=== PATIENT | female | born 1990 | race Caucasian/White ===

== ENCOUNTER 2023-08-09 16:00 | Emergency (ER) | payer BC, SELFPAY ==
[2023-08-09 16:00] VITALS: BP 132/86; PULSE 111; RESP 16; TEMP 36.7; O2SAT 100
--- NOTE | 2023-08-09 16:00 | RT.EKG_ITS ---
APPROVED REPORT Exam: Resting ECG Reason for Exam: chest pain Patient Location: E HR:99 bpm ECG Measurements Heart Rate 99 AXIS MT 162 P 76 QRSd 82 QRS 70 QT 352 T 14 QTc 453 Conclusion Sinus rhythm...normal P axis, V-rate 60- 99 Normal axis, normal intervals T wave inversion in III No STEMI, no prev avail
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
[2023-08-09 16:27] LABS: Abs Immature Grans 0.05 10^3/uL (0.0-0.06); Absolute Basophil Count 0.08 10^3/uL (0.0-0.2); Absolute Eosinophil Count 0.02 10^3/uL (0.0-0.7); Absolute Lymphocyte Count 1.23 10^3/uL (1.2-3.4); Absolute Neutrophil Count 9.13 10^3/uL (1.2-6.7); Basophils % 0.7; Eosinophils % 0.2; HCT 42.1 % (36.0-46.0); HGB 14.1 g/dL (11.2-15.7); Immature Grans % 0.5; Lymphocytes % 11.2; MCH 29.6 pg (27.0-33.0); MCHC 33.5 % (32.0-36.0); MCV 88 fL (80-95); MPV 10.2 fL (8.0-11.0); Monocytes % 4.5; Neutrophils % 82.9; Platelet Count 262 10^3/uL (130-400); RBC 4.77 10^6/uL (3.93-5.22); RDW-SD 42.3 fL; WBC 11.01 10^3/uL (4.4-10.8)
[2023-08-09] MEDS: Normal Saline 1,000 ML 1000 ML IV (16:30)
[2023-08-09] MEDS: ACETAMINOPHEN 1,000 MG/100 ML BTL 400 MG IVPB (16:31)
[2023-08-09 16:45] LABS: ALT 23 U/L (14-59); AST 16 U/L (15-37); Albumin 4.6 g/dL (3.4-5.0); Alkaline Phosphatase 41 U/L (46-116); Anion Gap 11.4 mmol/L (3-11); BUN 13 mg/dL (7-18); Bilirubin, Total 0.3 mg/dL (0.2-1.0); CO2 26.6 mmol/L (21.0-32.0); CREATININE 0.7 mg/dL (0.55-1.02); Calcium 9.5 mg/dL (8.5-10.1); Chloride 102 mmol/L (98-107); Estimated GFR 118.51 (mL/min/1.73m2); Glucose 87 mg/dL (74-106); Magnesium 2.1 mg/dL (1.8-2.4); Potassium 3.6 mmol/L (3.5-5.1); Sodium 140 mmol/L (136-145); Total Protein 8.9 g/dL (6.4-8.2); Troponin I < 50 ng/L (< or =60)
[2023-08-09 16:50] LABS: HCG Qual (Serum) Negative
[2023-08-09] MEDS: Normal Saline - Diluent 50 ML VIAL IJ (17:06)
[2023-08-09] MEDS: Omnipaque 350 MG/ML 100 ML BTL 70 ML IJ (17:07)
[2023-08-09] MEDS: Normal Saline Flush 10 ML SYR IVP (17:08)
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
[2023-08-09 18:22] VITALS: BP 120/77; PULSE 110; RESP 16; TEMP 37.2; O2SAT 100
[2023-08-09] MEDS: Ketorolac 15 MG/ML VIAL IVP (18:54)
== END 2023-08-09 19:19 | disposition home or self-care (01) ==
PROVIDERS: Emergency Provider Emergency Medicine Emergency Medical Services
DX: S06.891A Other specified intracranial injury with loss of consciousness of 30 minutes or less, initial encounter (principal); S20.214A Contusion of middle front wall of thorax, initial encounter; S80.01XA Contusion of right knee, initial encounter; R94.31 Abnormal electrocardiogram [ECG] [EKG]; R91.1 Solitary pulmonary nodule; W00.0XXA Fall on same level due to ice and snow, initial encounter; Y93.24 Activity, cross country skiing; Y92.838 Other recreation area as the place of occurrence of the external cause
CPT/HCPCS: 80053; 93005; 96361; 96374; 96375; 99285; 70450; 70486; 71260; 72125; 73564; 83735; 84484; 84703; 85025; 93010; 99284; J0131; J1885; J3490